=== PATIENT | male | born 1970 | race African-American/Black ===

== ENCOUNTER 2017-09-17 13:19 | Emergency (ER) | payer SELFPAY ==
[2017-09-17] MEDS: DIPHTH,PERTUSS(ACELL),TET TOX 0.5 ML DISP.SYRIN. VAX IM (14:08)
== END 2017-09-17 14:18 | disposition home or self-care (01) ==
LOC: ER 13:19
DX: T62.8X4A Toxic effect of other specified noxious substances eaten as food, undetermined, initial encounter (principal); Y92.89 Other specified places as the place of occurrence of the external cause
CPT/HCPCS: 90471; 90715; 99283-25

== ENCOUNTER 2017-09-17 17:46 | Emergency (ER) | payer SELFPAY ==
[2017-09-17 20:34] LABS: ADD MAN DIFF? NO
[2017-09-17 20:38] LABS: BASO % 1 % (0-3); EOS % 1 % (0-3); HEMATOCRIT 39.6 % (39.0-53.0); HEMOGLOBIN 13.2 g/dL (13.0-17.5); LYMPH # 2.3 x10^3/uL (1.0-4.8); LYMPH % 37 % (24-48); MEAN CORPUSCULAR HEMOGLOBIN 29 pg (25-35); MEAN CORPUSCULAR HGB CONC 33 g/dL (31-37); MEAN CORPUSCULAR VOLUME 87 fL (79-100); MONO # 0.4 x10^3/uL (0.0-1.1); MONO % 7 % (0-9); NEUT # 3.3 x10^3uL (1.8-7.7); NEUT % 54 % (31-73); PLATELET COUNT 168 x10^3/uL (140-400); RED BLOOD COUNT 4.54 x10^6/uL (4.30-5.70); RED CELL DISTRIBUTION WIDTH 13.9 % (11.5-14.5); WHITE BLOOD COUNT 6.1 x10^3/uL (4.0-11.0)
[2017-09-17] MEDS: ONDANSETRON PF 4 MG/2 ML VIAL. IV (20:39)
[2017-09-17] MEDS: LIDO:MAALOX:DONNATAL 1:1:1 15 ML SINGLE DOSE SWSW (20:39)
[2017-09-17] MEDS: IV NORMAL SALINE 1000ML BAG 1,000 ML IV (20:39)
[2017-09-17 20:46] LABS: BARBITURATES NEG (NEG); BENZODIAZEPINES NEG (NEG); CANNABINOIDS NEG (NEG); COCAINE NEG (NEG); METHADONE NEG (NEG); OPIATES NEG (NEG); PHENCYCLIDINE NEG (NEG)
[2017-09-17 20:47] LABS: BILIRUBIN,URINE NEGATIVE (NEG); CLARITY,URINE CLEAR; COLOR,URINE YELLOW; GLUCOSE,URINE NEGATIVE (NEG); NITRITE,URINE NEGATIVE (NEG); PROTEIN,URINE NEGATIVE (NEG-TRACE); UROBILINOGEN,URINE 0.2 mg/dL (0.2 mg/dL)
[2017-09-17 20:49] LABS: ANION GAP 8 (6-14); BLOOD UREA NITROGEN 15 mg/dL (8-26); BUN/CREATININE RATIO 15 (6-20); CALCIUM 8.2 mg/dL (8.5-10.1); CARBON DIOXIDE 26 mmol/L (21-32); CHLORIDE 106 mmol/L (98-107); GFR 97.8; GLUCOSE 100 mg/dL (70-99); POTASSIUM 3.5 mmol/L (3.5-5.1); SODIUM 140 mmol/L (136-145)
[2017-09-17 20:55] LABS: ALBUMIN 3.3 g/dL (3.4-5.0); ALK PHOS 56 U/L (46-116); ALT (SGPT) 28 U/L (16-63); AST (SGOT) 17 U/L (15-37); LIPASE 110 U/L (73-393); TOTAL BILIRUBIN 0.3 mg/dL (0.2-1.0); TOTAL PROTEIN 6.6 g/dL (6.4-8.2)
[2017-09-17 20:58] LABS: RBC,URINE 0 /HPF (0-2)
[2017-09-17 20:59] LABS: BACTERIA,URINE 0 /HPF (0-FEW); WBC,URINE RARE /HPF (0-4)
[2017-09-17 21:00] LABS: AMPHETAMINE/METHAMPHETAMINE NEG (NEG); ETHANOL, URINE NEG (NEG)
== END 2017-09-17 22:18 | disposition home or self-care (01) ==
LOC: ER 17:46
DX: R11.2 Nausea with vomiting, unspecified (principal); R10.9 Unspecified abdominal pain; R19.7 Diarrhea, unspecified
CPT/HCPCS: 36415; 74022; 80053; 80307; 81001; 83690; 85025; 96361; 96374; 99285-25; J2405; J7030

== ENCOUNTER 2017-09-20 12:33 | Emergency (ER) | payer SELFPAY ==
[2017-09-20 13:16] LABS: ADD MAN DIFF? NO
[2017-09-20 13:17] LABS: BASO % 1 % (0-3); EOS % 1 % (0-3); HEMOGLOBIN 14.8 g/dL (13.0-17.5); LYMPH # 1.6 x10^3/uL (1.0-4.8); LYMPH % 39 % (24-48); MEAN CORPUSCULAR HEMOGLOBIN 29 pg (25-35); MEAN CORPUSCULAR HGB CONC 34 g/dL (31-37); MEAN CORPUSCULAR VOLUME 87 fL (79-100); MONO # 0.2 x10^3/uL (0.0-1.1); MONO % 6 % (0-9); NEUT # 2.2 x10^3uL (1.8-7.7); NEUT % 54 % (31-73); PLATELET COUNT 190 x10^3/uL (140-400); RED BLOOD COUNT 5.09 x10^6/uL (4.30-5.70); RED CELL DISTRIBUTION WIDTH 13.8 % (11.5-14.5); WHITE BLOOD COUNT 4.1 x10^3/uL (4.0-11.0)
[2017-09-20 13:25] LABS: ANION GAP 4 (6-14); BLOOD UREA NITROGEN 13 mg/dL (8-26); BUN/CREATININE RATIO 12 (6-20); CALCIUM 9.2 mg/dL (8.5-10.1); CARBON DIOXIDE 30 mmol/L (21-32); CHLORIDE 104 mmol/L (98-107); CREATININE 1.1 mg/dL (0.7-1.3); GFR 87.6; GLUCOSE 95 mg/dL (70-99); POTASSIUM 4.6 mmol/L (3.5-5.1); SODIUM 138 mmol/L (136-145)
[2017-09-20 13:31] LABS: ALBUMIN 3.7 g/dL (3.4-5.0); ALBUMIN/GLOBULIN RATIO 1.1 (1.0-1.7); ALK PHOS 60 U/L (46-116); ALT (SGPT) 29 U/L (16-63); AST (SGOT) 18 U/L (15-37); LIPASE 83 U/L (73-393); TOTAL BILIRUBIN 0.3 mg/dL (0.2-1.0); TOTAL PROTEIN 7.1 g/dL (6.4-8.2)
[2017-09-20] MEDS: ONDANSETRON PF 4 MG/2 ML VIAL. IV (13:35)
[2017-09-20] MEDS: FAMOTIDINE 20 MG/2 ML VIAL IVP (13:36)
== END 2017-09-20 14:20 | disposition home or self-care (01) ==
LOC: ER 12:33
DX: R11.2 Nausea with vomiting, unspecified (principal); R10.13 Epigastric pain; R19.7 Diarrhea, unspecified; J45.909 Unspecified asthma, uncomplicated
CPT/HCPCS: 36415; 80053; 83690; 85025; 96374; 96375; 99284-25; J2405; S0028

== ENCOUNTER 2017-09-25 11:49 | Emergency (ER) | payer SELFPAY ==
[2017-09-25] MEDS: IV NORMAL SALINE 1000ML BAG 1,000 ML IV (13:10)
[2017-09-25] MEDS: ONDANSETRON PF 4 MG/2 ML VIAL. IV (13:15)
[2017-09-25 13:18] LABS: ANION GAP 9 (6-14); BLOOD UREA NITROGEN 11 mg/dL (8-26); BUN/CREATININE RATIO 9 (6-20); CALCIUM 9.1 mg/dL (8.5-10.1); CARBON DIOXIDE 26 mmol/L (21-32); CHLORIDE 104 mmol/L (98-107); CREATININE 1.2 mg/dL (0.7-1.3); GFR 79.2; GLUCOSE 98 mg/dL (70-99); POTASSIUM 4.1 mmol/L (3.5-5.1); SODIUM 139 mmol/L (136-145)
[2017-09-25] MEDS: PANTOPRAZOLE IV PUSH 40 MG VIAL. IVP (13:18)
[2017-09-25 13:33] LABS: ALBUMIN 3.7 g/dL (3.4-5.0); ALK PHOS 48 U/L (46-116); ALT (SGPT) 26 U/L (16-63); AST (SGOT) 16 U/L (15-37); LIPASE 75 U/L (73-393); TOTAL BILIRUBIN 0.5 mg/dL (0.2-1.0); TOTAL PROTEIN 7.3 g/dL (6.4-8.2)
[2017-09-25 13:38] LABS: BARBITURATES NEG (NEG); BENZODIAZEPINES NEG (NEG); CANNABINOIDS NEG (NEG); COCAINE NEG (NEG); METHADONE NEG (NEG); OPIATES NEG (NEG); PHENCYCLIDINE NEG (NEG)
[2017-09-25 13:39] LABS: AMPHETAMINE/METHAMPHETAMINE NEG (NEG); ETHANOL, URINE NEG (NEG)
[2017-09-25 13:43] LABS: ADD MAN DIFF? NO
[2017-09-25 13:45] LABS: BASO % 1 % (0-3); EOS % 1 % (0-3); HEMATOCRIT 42.7 % (39.0-53.0); HEMOGLOBIN 14.1 g/dL (13.0-17.5); LYMPH # 1.4 x10^3/uL (1.0-4.8); LYMPH % 39 % (24-48); MEAN CORPUSCULAR HEMOGLOBIN 29 pg (25-35); MEAN CORPUSCULAR HGB CONC 33 g/dL (31-37); MEAN CORPUSCULAR VOLUME 88 fL (79-100); MONO # 0.3 x10^3/uL (0.0-1.1); MONO % 7 % (0-9); NEUT # 1.9 x10^3uL (1.8-7.7); NEUT % 51 % (31-73); PLATELET COUNT 163 x10^3/uL (140-400); RED BLOOD COUNT 4.87 x10^6/uL (4.30-5.70); RED CELL DISTRIBUTION WIDTH 13.7 % (11.5-14.5); WHITE BLOOD COUNT 3.6 x10^3/uL (4.0-11.0)
== END 2017-09-25 15:21 | disposition home or self-care (01) ==
LOC: ER 11:49
DX: R11.2 Nausea with vomiting, unspecified (principal); R19.7 Diarrhea, unspecified; J45.909 Unspecified asthma, uncomplicated
CPT/HCPCS: 36415; 80053; 80307; 83690; 85025; 96361; 96374; 96375; 99284-25; C9113; J2405; J7030

== ENCOUNTER 2019-08-11 20:46 | Emergency (ER) | payer SELFPAY ==
[~2019-08-11] VITALS: Ht 167.6 cm; Wt 65.9 kg
[~2019-08-11 20:46] MED LIST: ONDA4TAB7 PO; PROC10TA57 PO; PROM25TA10 PO; RANI150T2 PO
[2019-08-11 21:00] VITALS: BP 126/71
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
== END 2019-08-11 21:36 | disposition home or self-care (01) ==
LOC: ER 20:46
DX: J45.909 Unspecified asthma, uncomplicated (principal); Z98.890 Other specified postprocedural states
CPT/HCPCS: 99281

== ENCOUNTER 2020-02-09 22:04 | Emergency (ER) | payer OTHER, MEDICAID ==
[~2020-02-09] VITALS: Ht 167.6 cm; Wt 65.9 kg
[2020-02-09] MEDS ORDERED: KETOROLAC 60 MG/2 ML VIAL. IM ONE (23:45)
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
[2020-02-10] MEDS ORDERED: METH-38 PO (02:40)
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
[2020-02-10 03:25] VITALS: BP 130/86
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
== END 2020-02-10 03:25 | disposition home or self-care (01) ==
LOC: ER 22:04
DX: S00.83XA Contusion of other part of head, initial encounter (principal); M54.2 Cervicalgia; M25.572 Pain in left ankle and joints of left foot; M54.9 Dorsalgia, unspecified; J45.909 Unspecified asthma, uncomplicated; Z98.890 Other specified postprocedural states; V49.9XXA Car occupant (driver) (passenger) injured in unspecified traffic accident, initial encounter; Y93.89 Activity, other specified; Y92.413 State road as the place of occurrence of the external cause; Y99.8 Other external cause status
CPT/HCPCS: 70450; 72100; 72125; 73610; 96372; 99285; J1885